=== PATIENT | male | born 1985 | race Caucasian/White ===

== ENCOUNTER → 2022-12-26 | Outpatient (CLI) | payer BC ==
[2022-12-26 13:59] LABS: BASO # 0.1 10^3/uL (0.0-0.2); BASO % 0.9 % (0.0-1.0); EOS # 0.3 10^3/uL (0.0-0.5); EOS % 3.5 % (0.0-3.0); HEMATOCRIT 49.7 % (42.0-52.0); HEMOGLOBIN 16.2 g/dl (13.5-17.5); LYMPH # 3.6 10^3/uL (1.5-5.0); LYMPH % 41.9 % (24.0-44.0); MEAN CORPUSCULAR HEMOGLOBIN 29.3 pg (27.0-33.0); MEAN CORPUSCULAR HGB CONC 32.6 g/dl (32.0-36.5); MONO # 0.6 10^3/uL (0.0-0.8); NEUTROPHILS % 46.5 % (36.0-66.0); PLATELET COUNT, AUTOMATED 285 10^3/uL (150-450); RED BLOOD COUNT 5.52 10^6/uL (4.30-6.10); WHITE BLOOD COUNT 8.6 10^3/uL (4.0-10.0)
[2022-12-26 14:26] LABS: ALKALINE PHOSPHATASE 78 U/L (46-116); ALT/SGPT 85 U/L (7.0-40); AST/SGOT 32 U/L (<34); BILIRUBIN,TOTAL 0.5 MG/DL (0.3-1.2); BLOOD UREA NITROGEN 9 MG/DL (9-23); CALCIUM LEVEL 9.9 MG/DL (8.5-10.1); CARBON DIOXIDE LEVEL 27 MMOL/L (20-31); CHLORIDE LEVEL 102 MMOL/L (98-107); CHOLESTEROL LEVEL 246 MG/DL (<200); CREATININE FOR GFR 0.87 MG/DL (0.70-1.30); GLOMERULAR FILTRATION RATE > 60.0 (>60); GLUCOSE, FASTING 84 MG/DL (60-100); HDL CHOLESTEROL 42.4 MG/DL (>40); LDL CHOLESTEROL 155.8 MG/DL (<100); NON-HDL-C 203.6 MG/DL; POTASSIUM SERUM 4.7 MMOL/L (3.5-5.1); SODIUM LEVEL 138 MMOL/L (136-145); TOTAL PROTEIN 7.1 G/DL (5.7-8.2); TRIGLYCERIDES LEVEL 239 MG/DL (<150)
== END ==
LOC: M PLALAB 11:41
PROVIDERS: ATTEND Registered Nurse
DX: Z00.00 Encounter for general adult medical examination without abnormal findings (principal)

== ENCOUNTER 2023-08-05 17:11 | Emergency (ER) | payer BC, SELFPAY ==
[~2023-08-05] VITALS: Ht 185.4 cm; Wt 128.3 kg
[2023-08-05 17:12] VITALS: BP 136/98; TEMP 97.4; O2SAT 99
[2023-08-05] MEDS ORDERED: ESOM40CA35 (17:43)
[2023-08-05] MEDS ORDERED: PROZ10CA7 (17:43)
[2023-08-05] MEDS ORDERED: BUSP1TAB (17:43)
== END 2023-08-05 17:45 | disposition left against medical advice (07) ==
LOC: M ED 17:11
DX: Z53.21 Procedure and treatment not carried out due to patient leaving prior to being seen by health care provider (principal)

== ENCOUNTER 2023-08-07 11:40 | Inpatient (IN) | payer BC ==
[~2023-08-07] VITALS: Ht 185.4 cm; Wt 133.9 kg
[~2023-08-07 11:40] MED LIST changes: -AMOX500T2 PO; -BUSP1TAB PO; -ESOM1CAP5 PO; -FLUO10CA18 PO; -GASTROGRAFIN SOLUTION 30ML As Ordered ONE; -ISOVUE-370 76% 100ML VIAL As Ordered ONE
[2023-08-07] MEDS: MORPHINE 4 MG/ML 1ML VIAL IV ONE (13:16)
[2023-08-07] MEDS: PIPERACILLIN/TAZOBACTAM SOD 4.5 GM in D5W MINI-BAG PLUS 50 ML IV ONE (13:17)
[2023-08-07] MEDS: NS 1,000 ML IV ONE (13:17)
[2023-08-07] MEDS: ONDANSETRON 4MG 2ML VIAL IV ONE (13:17)
[2023-08-07 14:50] LABS: BASO # 0.1 10^3/uL (0.0-0.2); BASO % 0.4 % (0.0-1.0); EOS % 0.2 % (0.0-3.0); HEMOGLOBIN 15.1 g/dl (13.5-17.5); LYMPH # 1.9 10^3/uL (1.5-5.0); LYMPH % 15.6 % (24.0-44.0); MEAN CORPUSCULAR HEMOGLOBIN 29.2 pg (27.0-33.0); MEAN CORPUSCULAR HGB CONC 33.6 g/dl (32.0-36.5); MEAN CORPUSCULAR VOLUME 86.9 fl (80.0-96.0); MONO # 0.8 10^3/uL (0.0-0.8); MONO % 6.7 % (2.0-8.0); NEUTROPHILS # 9.3 10^3/uL (1.5-8.5); NEUTROPHILS % 76.6 % (36.0-66.0); PLATELET COUNT, AUTOMATED 280 10^3/uL (150-450); RED BLOOD COUNT 5.18 10^6/uL (4.30-6.10); WHITE BLOOD COUNT 12.2 10^3/uL (4.0-10.0)
[2023-08-07 15:22] LABS: BLOOD UREA NITROGEN 8 MG/DL (9-23); CALCIUM LEVEL 8.5 MG/DL (8.5-10.1); CARBON DIOXIDE LEVEL 27 MMOL/L (20-31); CHLORIDE LEVEL 105 MMOL/L (98-107); CREATININE FOR GFR 0.89 MG/DL (0.70-1.30); GLOMERULAR FILTRATION RATE > 60.0 (>60); GLUCOSE, FASTING 98 MG/DL (60-100); POTASSIUM SERUM 4.3 MMOL/L (3.5-5.1); SODIUM LEVEL 139 MMOL/L (136-145)
[2023-08-07] MEDS ORDERED: LIDOCAINE 2% 100MG/5ML SDV (FOR ANES.) As Ordered ONE (17:07)
[2023-08-07] MEDS ORDERED: ROCURONIUM BROMIDE 50MG/5ML VIAL As Ordered ONE (17:07)
[2023-08-07] MEDS ORDERED: SUGAMMADEX SODIUM 500 MG/5 ML VIAL (BRIDION) As Ordered ONE (17:07)
[2023-08-07] MEDS ORDERED: fentaNYL 250 MCG/5 ML INJECTION As Ordered ONE (17:07)
[2023-08-07] MEDS ORDERED: KETOROLAC 60MG 2ML VIAL As Ordered ONE (17:07)
[2023-08-07] MEDS ORDERED: ONDANSETRON 4MG 2ML VIAL As Ordered ONE (17:07)
[2023-08-07] MEDS ORDERED: propofoL 200 MG/20 ML VIAL As Ordered ONE (17:07)
[2023-08-07] MEDS ORDERED: MIDAZOLAM INJ 2MG/2ML VIAL As Ordered ONE (17:08)
[2023-08-07] MEDS ORDERED: ACETAMINOPHEN 1000MG 100ML IV BAG As Ordered ONE (17:49)
[2023-08-07] MEDS ORDERED: dexmedeTOMIDine (4MCG/ML)200MCG/50ML BTL (PRECEDEX) As Ordered ONE (17:49)
[2023-08-07] MEDS ORDERED: GLYCOPYRROLATE INJ 0.2 MG/ML 2 ML VIAL As Ordered ONE (18:26)
[2023-08-07] MEDS ORDERED: MORPHINE 2 MG/ML 1ML VIAL IV PRN ×2 (18:50→19:05)
[2023-08-07] MEDS ORDERED: fentaNYL 100 MCG/2 ML INJECTION IV PRN (18:50)
[2023-08-07] MEDS ORDERED: ONDANSETRON 4MG 2ML VIAL IV PRN (19:05)
[2023-08-07] MEDS ORDERED: METOCLOPRAMIDE INJ 10MG/2ML VIAL IV PRN (19:05)
[2023-08-07] MEDS ORDERED: MORPHINE 4 MG/ML 1ML VIAL IV PRN ×2 (19:05)
[2023-08-07] MEDS ORDERED: IPRATROPIUM 0.5MG/ALBUTEROL 2.5MG INH SOL UD 3ML (DUONEB) NEB PRN (19:05)
[2023-08-07] MEDS: ONDANSETRON 4MG 2ML VIAL IV PRN (19:38)
[2023-08-07] MEDS: IPRATROPIUM 0.5MG/ALBUTEROL 2.5MG INH SOL UD 3ML (DUONEB) NEB SCH (20:00)
[2023-08-07 20:24] VITALS: BP 148/77; TEMP 97.5; O2SAT 93
[2023-08-07] MEDS: LR 1,000 ML IV SCH (20:35)
[2023-08-07] MEDS: PIPERACILLIN/TAZOBACTAM SOD 3.375 GM in D5W MINI-BAG PLUS 50 ML IV SCH (20:43)
[2023-08-07] MEDS: NS 1,000 ML IV SCH (20:43)
[2023-08-07 20:59] VITALS: BP 123/75; TEMP 97.5; O2SAT 91
[2023-08-07 22:00] VITALS: BP 114/71; TEMP 97.6; O2SAT 92
[2023-08-07] MEDS ORDERED: BUSP1TAB PO (22:09)
[2023-08-07] MEDS ORDERED: ESOM1CAP5 PO (22:09)
[2023-08-07] MEDS ORDERED: FLUO10CA18 PO (22:09)
[2023-08-07] MEDS ORDERED: HOME MED LIST COMPLETE! XX SCH (22:10)
[2023-08-07] MEDS: KETOROLAC 30 MG/ML 1ML VIAL IV SCH (23:40)
[2023-08-08 00:01] VITALS: BP 97/52; TEMP 97.7; O2SAT 92
[2023-08-08 01:01] VITALS: BP 120/68; TEMP 97.6; O2SAT 91
[2023-08-08 02:01] VITALS: BP 115/69; TEMP 97; O2SAT 94
[2023-08-08 03:02] VITALS: BP 119/68; TEMP 97.8; O2SAT 92
[2023-08-08 06:58] VITALS: BP 101/51; TEMP 97.9; O2SAT 94
[2023-08-08] MEDS: PANTOPRAZOLE 40MG VIAL IV SCH (08:18)
[2023-08-08] MEDS: ACETAMINOPHEN TAB 650MG DOSE (2X325MG) PO PRN (09:27)
[2023-08-08] MEDS ORDERED: AMOX500T2 PO (13:30)
== END 2023-08-08 14:10 | disposition home or self-care (01) | DRG 225 ==
LOC: M ED 11:40 → M SDC 15:02 → M MS5PR 20:15
PROVIDERS: ADMIT Surgery; ATTEND Surgery
PROC: 0DTJ4ZZ Resection of Appendix, Percutaneous Endoscopic Approach (ICD-10-PCS; principal; 2023-08-07 16:30)
DX: K35.80 Unspecified acute appendicitis (principal); Z88.2 Allergy status to sulfonamides

== ENCOUNTER → 2023-08-07 | Outpatient (CLI) | payer BC ==
[~2023-08-07] MED LIST: AMOX500T2 PO; BUSP1TAB; BUSP1TAB PO; ESOM1CAP5 PO; ESOM40CA35; FLUO10CA18 PO; GASTROGRAFIN SOLUTION 30ML As Ordered ONE; ISOVUE-370 76% 100ML VIAL As Ordered ONE; PROZ10CA7
[2023-08-07 10:44] LABS: BASO # 0.1 10^3/uL (0.0-0.2); BASO % 0.4 % (0.0-1.0); EOS % 0.2 % (0.0-3.0); HEMATOCRIT 46.3 % (42.0-52.0); HEMOGLOBIN 15.7 g/dl (13.5-17.5); LYMPH # 2.3 10^3/uL (1.5-5.0); MEAN CORPUSCULAR HEMOGLOBIN 29.2 pg (27.0-33.0); MEAN CORPUSCULAR HGB CONC 33.9 g/dl (32.0-36.5); MEAN CORPUSCULAR VOLUME 86.1 fl (80.0-96.0); MONO # 0.8 10^3/uL (0.0-0.8); MONO % 6.4 % (2.0-8.0); NEUTROPHILS # 9.5 10^3/uL (1.5-8.5); NEUTROPHILS % 74.8 % (36.0-66.0); PLATELET COUNT, AUTOMATED 305 10^3/uL (150-450); RED BLOOD COUNT 5.38 10^6/uL (4.30-6.10); WHITE BLOOD COUNT 12.8 10^3/uL (4.0-10.0)
[2023-08-07 11:11] LABS: ALBUMIN 3.4 G/DL (3.2-5.2); ALKALINE PHOSPHATASE 119 U/L (46-116); ALT/SGPT 60 U/L (7.0-40); AST/SGOT 30 U/L (<34); BILIRUBIN,TOTAL 1.2 MG/DL (0.3-1.2); BLOOD UREA NITROGEN 10 MG/DL (9-23); CALCIUM LEVEL 9.3 MG/DL (8.5-10.1); CARBON DIOXIDE LEVEL 28 MMOL/L (20-31); CHLORIDE LEVEL 103 MMOL/L (98-107); CREATININE FOR GFR 0.98 MG/DL (0.70-1.30); GLOMERULAR FILTRATION RATE > 60.0 (>60); GLUCOSE, FASTING 97 MG/DL (60-100); POTASSIUM SERUM 4.4 MMOL/L (3.5-5.1); SODIUM LEVEL 136 MMOL/L (136-145); TOTAL PROTEIN 6.8 G/DL (5.7-8.2)
== END ==
LOC: M RAD 09:35
PROVIDERS: ATTEND Nurse Practitioner Family
DX: R10.31 Right lower quadrant pain (principal); R93.3 Abnormal findings on diagnostic imaging of other parts of digestive tract
CPT/HCPCS: 36415; 74177; 80053; 85025; Q9963; Q9967

== ENCOUNTER → 2024-03-23 | Outpatient (CLI) | payer BC ==
[~2024-03-23] MED LIST changes: +AMOX500T2 PO; +BUSP1TAB PO; +ESOM1CAP20 PO; +FLUO-290 PO
[2024-03-23 11:15] LABS: BASO # 0.1 10^3/uL (0.0-0.2); BASO % 0.6 % (0.0-1.0); EOS # 0.1 10^3/uL (0.0-0.5); EOS % 1.2 % (0.0-3.0); HEMATOCRIT 45.3 % (42.0-52.0); HEMOGLOBIN 15.5 g/dl (13.5-17.5); LYMPH # 2.3 10^3/uL (1.5-5.0); LYMPH % 25.6 % (24.0-44.0); MEAN CORPUSCULAR HEMOGLOBIN 29.9 pg (27.0-33.0); MEAN CORPUSCULAR HGB CONC 34.2 g/dl (32.0-36.5); MEAN CORPUSCULAR VOLUME 87.3 fl (80.0-96.0); MONO # 0.6 10^3/uL (0.0-0.8); NEUTROPHILS % 65.5 % (36.0-66.0); PLATELET COUNT, AUTOMATED 274 10^3/uL (150-450); RED BLOOD COUNT 5.19 10^6/uL (4.30-6.10); WHITE BLOOD COUNT 9.1 10^3/uL (4.0-10.0)
[2024-03-23 11:24] LABS: C REACTIVE PROTEIN QUANTITATIV < 0.40 MG/DL (<1.0)
[2024-03-23 11:25] LABS: IRON (FE) 66 UG/DL (65-175); PERCENT SATURATION 23.2 % (19.7-50.0); TOTAL IRON BINDING CAPACITY 284 UG/DL (250-425)
[2024-03-23 11:26] LABS: ALBUMIN 3.6 G/DL (3.2-5.2); ALKALINE PHOSPHATASE 73 U/L (40-129); ALT/SGPT 29 U/L (7.0-40); AST/SGOT 9 U/L (<34); BILIRUBIN,TOTAL 0.5 MG/DL (0.3-1.2); BLOOD UREA NITROGEN 12 MG/DL (9-23); CALCIUM LEVEL 9.3 MG/DL (8.5-10.1); CARBON DIOXIDE LEVEL 27 MMOL/L (20-31); CHLORIDE LEVEL 107 MMOL/L (98-107); CHOLESTEROL LEVEL 194 MG/DL (<200); CHOLESTEROL RISK RATIO 6.11 (<5); CREATININE FOR GFR 0.85 MG/DL (0.70-1.30); GLOMERULAR FILTRATION RATE > 60.0 (>60); GLUCOSE, FASTING 106 MG/DL (60-100); HDL CHOLESTEROL 31.7 MG/DL (>40); LDL CHOLESTEROL 118.5 MG/DL (<100); MAGNESIUM LEVEL 1.9 MG/DL (1.8-2.4); NON-HDL-C 162.3 MG/DL; POTASSIUM SERUM 4.3 MMOL/L (3.5-5.1); SODIUM LEVEL 139 MMOL/L (136-145); THYROID PEROXIDASE ANTIBODY < 28.0 U/ML (<60.0); THYROID STIMULATING HORMONE 0.602 uIU/ML (0.55-4.78); TOTAL PROTEIN 6.6 G/DL (5.7-8.2); TRIGLYCERIDES LEVEL 219 MG/DL (<150)
[2024-03-23 11:27] LABS: FERRITIN 242.6 NG/ML (10.5-307.3); FREE T4 1.38 NG/DL (0.89-1.76); TOTAL 25(OH) VITAMIN D 22.2 NG/ML (20.0-100.0)
[2024-03-23 11:28] LABS: VITAMIN B12 LEVEL 275 PG/ML (211-911)
[2024-03-23 11:29] LABS: HEMOGLOBIN A1c 5.4 % (4.0-6.0)
[2024-03-23 11:40] LABS: ERYTHROCYTE SEDIMENTATION RATE 23 mm/hr (0-15)
== END ==
LOC: M PLALAB 08:48
PROVIDERS: ATTEND Registered Nurse
DX: E78.2 Mixed hyperlipidemia (principal); R63.4 Abnormal weight loss